=== PATIENT | female | born 2000 | race Two or more races ===

== ENCOUNTER → 2021-01-09 | Emergency (ER) | payer OTHER ==
[~2021-01-09] VITALS: Ht 170.2 cm; Wt 77.1 kg
== END | disposition home or self-care (01) ==
LOC: EMR PED 01:12 → ER 01:12
DX: S01.91XA Laceration without foreign body of unspecified part of head, initial encounter (principal); M54.5 Low back pain; Y92.838 Other recreation area as the place of occurrence of the external cause; Y35.311A Legal intervention involving baton, law enforcement official injured, initial encounter